=== PATIENT | male | born 1960 | race Caucasian/White ===

== ENCOUNTER 2016-12-19 17:29 | Emergency (ER) | payer BC ==
--- NOTE | ~2016-12-19 | ER ---
PATIENT'S NAME: AASHISH HAWTHORNE [facility] AGE: 56 Y [address] ROOM: [place] [address] LOCATION: [facility] ADMIT DATE: 12/19/2016 ER/Outpatient Report DISCHARGE DATE: 12/19/2016 FAMILY PHYSICIAN: PHYSICIAN, NO ATTENDING PHYSICIAN: Ruby Calros Time of Patient's Arrival: 1729 hours. Time of Patient's Evaluation: 1737 hours. CHIEF COMPLAINT: Right leg injury. HISTORY OF PRESENT ILLNESS: This is a 56-year-old male who presents to the ER. He states he was kicked in the right anterior thigh by a cow on around 7 o'clock in the evening. The patient states it did drop him to the ground. He states he had a numbing sensation to his leg when occurred. He was able to get up afterwards and climb up onto a fence to get away from the cow after it. He states since that time he has had pain in to the anterior aspect of his right thigh and this has not improved. He states he has not noticed any bruising to the legs, but has had increased swelling. He states now the swelling is going down into his knee. He denies any redness to the skin. Denies any shortness of breath. No chest pain. No recent illness. No fever or chills. He denies any other problems at this time. ALLERGIES: PENICILLIN. MEDICATIONS: Please see medication list in nurse's notes. PAST MEDICAL HISTORY: Hypertension, hypercholesterolemia. PAST SURGICAL HISTORY: He has had a cardiac stent and back surgery x2. SOCIAL HISTORY: Denies smoking, drug, or alcohol use. REVIEW OF SYSTEMS: CONSTITUTIONAL: Denies any change in weight or fatigue. RESPIRATORY: No shortness of breath or cough. CARDIOVASCULAR: No chest pains. MUSCULOSKELETAL: He is complaining of right anterior thigh pain. PATIENT'S NAME: AASHISH HAWTHORNE [facility] AGE: 56 Y [address] ROOM: [place] [address] LOCATION: [facility] ADMIT DATE: 12/19/2016 ER/Outpatient Report DISCHARGE DATE: 12/19/2016 FAMILY PHYSICIAN: PHYSICIAN, NO ATTENDING PHYSICIAN: Ruby Claros SKIN: No bruising. PHYSICAL EXAMINATION: VITAL SIGNS: 107 kg taken on weight, blood pressure is 146/86, pulse 93, respirations 20, temperature 97.7 degrees tympanically, and saturations 97% on room air. [place] Coma Score is 15. GENERAL: Alert, calm, well-developed 56-year-old, in no acute distress. HEENT: Head: Normocephalic. He does display moist mucous membranes. LUNGS: Clear to auscultation bilaterally. HEART: Regular rate and rhythm. EXTREMITIES: I do not appreciate any ecchymosis or erythema to the right anterior thigh. He does have some tenderness over the quadriceps muscle. He does appear to be more swollen across the thigh and into his knee compared to his left leg. He has no tenderness with flexion-extension of his ankles bilaterally and there is no erythema. No warmth to the skin. He has no pain in his hip or pelvis with palpation. LABORATORY DATA: CBC: White count is 9.6, hemoglobin is 14.0, platelets 235. CMS: Glucose is 102, otherwise unremarkable. We did do a venous Doppler of the right lower extremity, that was negative for DVT. I x-rayed his right femur and no acute fracture was seen either. IMPRESSION: Right anterior thigh injury from being kicked by a cow. ASSESSMENT AND PLAN: I did give the patient Percocet here in the emergency room for his pain. We did apply an Jama wrap for support and compression to the legs. He needs to ice and elevate the leg. He may alternate pain medication as needed with his prescription of Percocet. I would like him to follow up with primary care physician in 1 week or he should return to his primary care physician or an ER if his symptoms worsen. The patient understands and agrees with care. ANTOLIN WADE PA-C FOR MD APRIL GALLAGHER/nata /[id number] d: t: 12/24/16 1236, OUTPATIENT REPORT
--- NOTE | ~2016-12-19 | ENPV ---
Vascular Lower Extremities DVT Study Procedure Demographics Patient Name AASHISH HAWTHORNE Date of Study 12/19/2016 Patient Number [id number] Gender Male Date of 1960 Age 56 Visit Number [id number] Height Accession Number [id number] Weight Room Number BSA BMI Referring Karan UNDERWOOD Interpreting Blaise Chatterjee MD Physician Physician Physician Ordering Physician End User Consultant Head Loader Char Floyd T, RDMS Conclusions Summary No evidence of deep vein thrombosis or superficial thrombophlebitis in the right lower extremity . Procedure Type of Study: Veins:Lower Extremities DVT Study, Lower Extremity Right. Indications for Study:Swelling of Limb and Unilateral pain. Patient Status:Routine. Study Location:ER. Technical Quality:Adequate visualization. - Preliminary reported to:Ziyad Russo. Velocities are measured in cm/s ; Diameters are measured in cm Right Lower Extremities DVT Study Measurements Right 2D and Doppler Measurements + + + + +------+------+ + !Location !Visualized!Compressibility!Thrombosis!Signal!Reflux!Reflux ! ! ! ! ! ! ! !(sec) ! + + + + +------+------+ + !GSV Thigh !Yes !Yes !None !Phasic! ! ! + + + + +------+------+ + !Common !Yes !Yes !None !Phasic! ! ! !Femoral ! ! ! ! ! ! ! + + + + +------+------+ + !Prox !Yes !Yes !None !Phasic! ! ! !Femoral ! ! ! ! ! ! ! + + + + +------+------+ + !Mid Femoral!Yes !Yes !None !Phasic! ! ! + + + + +------+------+ + !Dist !Yes !Yes !None !Phasic! ! ! !Femoral ! ! ! ! ! ! ! + + + + +------+------+ + !Popliteal !Yes !Yes !None !Phasic! ! ! + + + + +------+------+ + !PTV !Yes !Yes !None !Phasic! ! ! + + + + +------+------+ + !Peroneal !Yes !Yes !None !Phasic! ! ! + + + + +------+------+ + Left Lower Extremities DVT Study Measurements Left 2D and Doppler Measurements +---------+ + + +------+------+ + !Location !Visualized!Compressibility!Thrombosis!Signal!Reflux!Reflux (sec)! +---------+ + + +------+------+ + !GSV Thigh!Yes !Yes !None !Phasic! ! ! +---------+ + + +------+------+ + Signature dtt: ABDIEL CARL dtd: 12/19/16 1839 Physician Self Edit
[2016-12-19 18:34] LABS: BASOPHIL # 0.1 K/uL (0.0-0.2); BASOPHIL % 0.5 %; EOSINOPHIL # 0.1 K/uL (0.0-0.5); EOSINOPHIL % 1.5 %; HEMATOCRIT 40.1 % (37.0-53.0); IMMATURE GRANULOCYTE # 0.1 K/uL (0.0-0.3); IMMATURE GRANULOCYTE % 0.5 %; LYMPHOCYTE # 2.8 K/uL (0.8-4.0); LYMPHOCYTE % 29.1 %; MCH 31.1 pg (27.0-34.0); MCHC 34.9 gm/dL (32.0-36.5); MCV 89.1 fl (83.0-98.0); MONOCYTE # 1.3 K/uL (0.0-1.0); MONOCYTE % 13.6 %; MPV 8.8 fl (9.4-12.4); NEUTROPHIL # (ANC) 5.2 K/uL (1.4-9.0); NEUTROPHIL % 54.8 %; NRBC % 0 /100WBC (0-0.00); PLATELET COUNT 235 K/uL (150-450); RDW-CV 13.2 % (11.9-14.6); WBC 9.6 K/uL (4.0-11.0)
[2016-12-19 18:42] LABS: INR - (THERAPEUTIC) 0.97 (0.92-1.07); PROTIME 10.2 SECONDS (9.8-11.4); PTT 25 SECONDS (25-32)
[2016-12-19 18:48] LABS: ALBUMIN 3.9 gm/dL (3.5-5.0); ANION GAP 10.8 (10.0-19.0); CALCIUM 9.1 mg/dL (8.5-10.5); CREATININE 1.1 mg/dL (0.6-1.3); POTASSIUM 3.8 mMol/L (3.7-5.1); TOTAL BILIRUBIN 0.4 mg/dL (0.0-1.5)
== END 2016-12-19 19:20 | disposition disaster alternative care site (69) ==
LOC: GACC 17:29
PROVIDERS: Physician Assistant Medical
DX: S79.921A Unspecified injury of right thigh, initial encounter (principal); I10 Essential (primary) hypertension; E78.00 Pure hypercholesterolemia, unspecified; Z98.890 Other specified postprocedural states; Z79.82 Long term (current) use of aspirin; Z88.0 Allergy status to penicillin; Z79.899 Other long term (current) drug therapy; W55.22XA Struck by cow, initial encounter

== ENCOUNTER 2016-12-22 22:49 | Emergency (ER) | payer BC ==
--- NOTE | ~2016-12-22 | ER ---
PATIENT'S NAME: AASHISH HAWTHORNE [facility] AGE: 56 Y [address] ROOM: [place] [address] LOCATION: [facility] ADMIT DATE: 12/22/2016 ER/Outpatient Report DISCHARGE DATE: 12/22/2016 FAMILY PHYSICIAN: PHYSICIAN, NO ATTENDING PHYSICIAN: Oumar Lewis Time of Arrival: 2249 hours. Time of Evaluation: 2303 hours. CHIEF COMPLAINT: Right leg injury. HISTORY OF PRESENT ILLNESS: The patient is a 56-year-old male who presents to the emergency department today with chief complaint of right leg injury. He reports that he initially injured his leg on 12/17 about 5 days prior to arrival after being kicked by a cow. He has had noted increased bruising to that site and became concerned and drove to the emergency department. He reports pain is 7/10 in severity. He has not been taking any of his pain medicine. It is a sharp type pain at the right upper thigh. PAST MEDICAL HISTORY: Hypertension, coronary artery disease. PAST SURGICAL HISTORY: Stent in 2007, back. SOCIAL HISTORY: The patient denies any smoking, does report half a can of tobacco use. Denies any illicit drug use or alcohol use. ALLERGIES: NO KNOWN DRUG ALLERGIES. MEDICATIONS: Please see the list. PRIMARY CARE DOCTOR: None. REVIEW OF SYSTEMS: All systems are reviewed by myself and negative with the exception of those discussed in HPI and past medical history. PHYSICAL EXAMINATION: PATIENT'S NAME: AASHISH HAWTHORNE [facility] AGE: 56 Y [address] ROOM: [place] [address] LOCATION: [facility] ADMIT DATE: 12/22/2016 ER/Outpatient Report DISCHARGE DATE: 12/22/2016 FAMILY PHYSICIAN: PHYSICIAN, NO ATTENDING PHYSICIAN: Oumar Lewis VITAL SIGNS: Weight 108 kg, blood pressure 142/84, pulse 82, respiratory rate 18, temperature 97.2, oxygen saturation 97% on room air. GENERAL: The patient is a 56-year-old male, appears stated age, in no acute distress at this time. HEENT: Head: Normocephalic, atraumatic. Pupils are equal, round, and reactive to light. NECK: Supple. There is no nuchal rigidity. CARDIOVASCULAR: Regular rate and rhythm. No murmurs, rubs, or gallops. LUNGS: Clear to auscultation bilaterally. No wheezes, rales, or rhonchi. ABDOMEN: Soft, nontender, and nondistended. No rebound, rigidity, or guarding. MUSCULOSKELETAL: The patient's compartments are soft on the right upper extremity. He has full range of motion. He ambulates with a mild antalgic gait to the right leg. 2/4 pulses DP and PT equal bilaterally. SKIN: Warm and dry. The patient does have a hematoma and ecchymosis noted in the right upper thigh. LABORATORY DATA AND X-RAYS: Bedside ultrasound is performed by myself. It does reveal compression and augmentation along the right femur, the common femoral vein, the popliteal vein, and also does have compression and augmentation. There is no swelling however. IMPRESSION: 1. Contusion with hematoma. 2. Initial visit. EMERGENCY DEPARTMENT COURSE: The patient was brought back to the examination room. Seen and evaluated by myself. Ultrasound is obtained as described above. I have discussed results with the patient. ID see no evidence of DVT. He has no swelling, no redness. His ultrasound is without evidence of DVT. I have discussed following up with the primary care doctor in 2 to 3 days for re-evaluation. I have discussed return to care instructions including worsening symptoms or other concerns to return to the emergency department as soon as possible. The patient is agreeable without further questions at this time. DISPOSITION: The patient discharged home in good condition. OUMAR LEWIS DO PATIENT'S NAME: AASHISH HAWTHORNE [facility] AGE: 56 Y [address] ROOM: [place] [address] LOCATION: ED ADMIT DATE: 12/22/2016 ER/Outpatient Report DISCHARGE DATE: 12/22/2016 FAMILY PHYSICIAN: PHYSICIAN, NO ATTENDING PHYSICIAN: Oumar Lewis/nata /[id number] d: 12/23/16 0214 t: 09/14/17 2007, OUTPATIENT REPORT
== END 2016-12-22 23:25 | disposition disaster alternative care site (69) ==
LOC: GACC 22:49 → GMED 22:49 → GACC 23:25
DX: S70.11XA Contusion of right thigh, initial encounter (principal); I10 Essential (primary) hypertension; I25.10 Atherosclerotic heart disease of native coronary artery without angina pectoris; F17.220 Nicotine dependence, chewing tobacco, uncomplicated; Z95.818 Presence of other cardiac implants and grafts; Z79.899 Other long term (current) drug therapy; W55.22XA Struck by cow, initial encounter